=== PATIENT | female | born 1955 | race Caucasian/White ===

== ENCOUNTER → 2018-04-14 | Outpatient (CLI) | payer SELFPAY | LOC: LAB EV 12:50 → LAB SHORT 12:50 | DX: N39.0 Urinary tract infection, site not specified (principal) | CPT/HCPCS: 87086 ==

== ENCOUNTER 2018-10-27 07:44 | Day surgery (SDC) | payer OTHER ==
[~2018-10-27] VITALS: Ht 160 cm; Wt 69.6 kg
[~2018-10-27 07:44] MED LIST: Zoloft50 MG
== END 2018-10-27 10:08 | disposition home or self-care (01) ==
LOC: ORSCSDS 07:44
PROVIDERS: Internal Medicine Gastroenterology
PROC: 0DBN8ZX Excision of Sigmoid Colon, Via Natural or Artificial Opening Endoscopic, Diagnostic (ICD-10-PCS; principal; 2018-10-27 09:00)
PROC: 0DBL8ZX Excision of Transverse Colon, Via Natural or Artificial Opening Endoscopic, Diagnostic (ICD-10-PCS; principal; 2018-10-27 09:00)
DX: Z12.11 Encounter for screening for malignant neoplasm of colon (principal); Z86.010 Personal history of colon polyps; D12.3 Benign neoplasm of transverse colon; K63.5 Polyp of colon; K57.30 Diverticulosis of large intestine without perforation or abscess without bleeding; E78.5 Hyperlipidemia, unspecified; Z79.899 Other long term (current) drug therapy
CPT/HCPCS: 88305; J7120

== ENCOUNTER → 2022-08-01 | Outpatient (CLI) | payer MEDICARE ==
[~2022-08-01] MED LIST changes: +HYDR1TAB94 PO; +Prinivil10 MG PO; +ZOLOFT100 M8 PO
== END ==
LOC: LAB 12:20 → LAB SHORT 12:20
DX: R10.2 Pelvic and perineal pain (principal)
CPT/HCPCS: 87086

== ENCOUNTER → 2024-11-26 | Outpatient (CLI) | payer MEDICARE | LOC: LAB 09:52 → LAB SHORT 09:52 | DX: R10.9 Unspecified abdominal pain (principal) | CPT/HCPCS: 87086 ==

== ENCOUNTER → 2025-03-03 | Outpatient (CLI) | payer MEDICARE ==
[2025-03-03 09:51] LABS: Source, Urine Clean Catch
[2025-03-03 13:27] LABS: Bilirubin, Urine Neg (Neg); Color, Urine Yellow (P-Yellow); Glucose Qualitative, Urine Neg (Neg); Ketones, Urine Neg (Neg); Leukocyte Esterase, Urine 2+ (Neg); Protein, Urine 1+ (Neg); Specific Gravity, Urine 1.015 (1.003-1.022); Urobilinogen, Urine NORM (Normal)
[2025-03-03 13:53] LABS: Red Blood Cells, Urine 0-2 /hpf (0-2)
== END ==
LOC: LAB 09:50 → LAB SHORT 09:50
PROVIDERS: Physician Assistant
DX: R30.0 Dysuria (principal); R10.12 Left upper quadrant pain; R10.2 Pelvic and perineal pain; R10.32 Left lower quadrant pain; R10.9 Unspecified abdominal pain
CPT/HCPCS: 81001; 87086